=== PATIENT | female | born 2000 | race Caucasian/White ===

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

== ENCOUNTER 2019-09-23 18:07 | Emergency (ER) | payer OTHER ==
[2019-09-23] MEDS ORDERED: Diphtheria,Pertussis(Acell),Tetanus Vaccine 0.5 ML Syringe IM ONE (21:13)
--- NOTE | 2019-09-23 21:15 | EDM.PDOC ---
ED HPI GENERAL MEDICAL PROBLEM - General Chief Complaint: Lower Extremity Injury/Pain Stated Complaint: INJURY TO RIGHT FOOT Time Seen by Provider: 09/23/19 21:13 Source of Information: Reports: Patient History Limitations: Reports: No Limitations - History of Present Illness INITIAL COMMENTS - FREE TEXT/NARRATIVE: Patient is 19-year-old female presenting with no past medical history complaining of puncture wound to the left foot. Patient states that she was walking and suffered a puncture wound from a tripp needle. The needle remained intact and pierced her foot and between the big and second toe. Patient had mild associated bleeding. No associated numbness or tingling. Bleeding controlled with direct pressure. This event happened about an hour prior to arrival. Pmhx: None Pshx: None Family Hx: noncontributory Smoking history? no Etoh use? none Drug use? none Review of systems performed and otherwise negative I have reviewed the triage vital signs Const: Well nourished, well developed, appears stated age Eyes: PERRL, no conjunctival injection HENT: NCAT, Neck supple without meningismus CV: RRR, Warm, well-perfused extremities GI: soft, non-tender, non-distended, no masses MSK: Puncture wound to the webspace between the first and second toe of the left foot. No foreign body visualized no swelling. No active bleeding. No gross deformities appreciated Skin: Warm, dry. 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 Sensation and motor function of extremities grossly intact. Psych: Appropriate mood and affect Assessment and plan: Patient is 20 female with puncture wound to the left foot. Patient has no evidence of foreign body. Mechanism is not concerning for fracture. Patient updated on tetanus and given instructions for local wound care. All questions addressed and answered. Patient agrees with plan right foot Pain Score (Numeric/FACES): 2 - Related Data Allergies Allergy/AdvReac Type Severity Reaction Status Date / Time No Known Allergies Allergy Verified 09/23/19 19:27 Home Meds: Home Meds . 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 Hematologic History: Reports: None Immunologic History: Reports: None Oncologic (Cancer) History: Reports: None Dermatologic History: Reports: None - Infectious Disease History Infectious Disease History: Reports: None - Past Surgical History Head Surgeries/Procedures: Reports: None HEENT Surgical History: Reports: Adenoidectomy, Tonsillectomy Social & Family History - Family History Family Medical History: Noncontributory - Tobacco Use Smoking Status *Q: Never Smoker - Caffeine Use Caffeine Use: Reports: Soda - Recreational Drug Use Recreational Drug Use: No Review of Systems - Review of Systems Review Of Systems: See Below ED EXAM, GENERAL - Physical Exam Exam: See Below Course - Vital Signs Last Recorded V/S: Last Vital Signs Temp 37.0 C 09/23/19 19:27 Pulse 92 09/23/19 19:27 Resp 18 09/23/19 19:27 BP 135/81 09/23/19 19:27 Pulse Ox 98 09/23/19 19:27 - Orders/Labs/Meds Orders: Active Orders 24 hr Category Date Time Status Vaccines to be Administered [RC] PER UNIT ROUTINE Care 09/23/19 21:13 Active Meds: Medications Discontinued Medications Generic Name Dose Route Start Last Admin Trade Name Freq PRN Reason Stop Dose Admin Diphtheria/Tetanus/Acell Pertussis 0.5 ml 09/23/19 21:13 09/23/19 21:18 Adacel IM 09/23/19 21:14 0.5 ml .ONCE ONE Administration Departure - Departure Time of Disposition: 21:13 Disposition: Home, Self-Care 01 Clinical Impression: Puncture wound of foot, right - Discharge Information Instructions: Puncture Wound, [id number] Referrals: Kristy Vernon DO [Primary Care Provider] - Forms: ED Department Discharge Additional Instructions: The following information is given to patients seen in the emergency department who are being discharged to home. This information is to outline your options for follow-up care. We provide all patients seen in our emergency department with a follow-up referral. The need for follow-up, as well as the timing and circumstances, are variable depending upon the specifics of your emergency department visit. If you don't have a primary care physician on staff, we will provide you with a referral. We always advise you to contact your personal physician following an emergency department visit to inform them of the circumstance of the visit and for follow-up with them and/or the need for any referrals to a consulting specialist. The emergency department will also refer you to a specialist when appropriate. This referral assures that you have the opportunity for follow-up care with a specialist. All of these measure are taken in an effort to provide you with optimal care, which includes your follow-up. Under all circumstances we always encourage you to contact your private physician who remains a resource for coordinating your care. When calling for follow-up care, please make the office aware that this follow-up is from your recent emergency room visit. If for any reason you are refused follow-up, please contact the [facility] Emergency Department at and asked to speak to the emergency department charge nurse. Sepsis Event Note - Evaluation Sepsis Screening Result: No Definite Risk - Focused Exam Vital Signs: Vital Signs Temp Pulse Resp BP Pulse Ox 09/23/19 19:27 37.0 C 92 18 135/81 98 Date Exam was Performed: 09/24/19 Time Exam was Performed: 04:29 - My Orders Last 24 Hours: My Active Orders 09/23/19 21:13 Vaccines to be Administered [RC] PER UNIT ROUTINE - Assessment/Plan Last 24 Hours: My Active Orders 09/23/19 21:13 Vaccines to be Administered [RC] PER UNIT ROUTINE
== END 2019-09-23 21:38 | disposition home or self-care (01) ==
LOC: MW.ED 18:07
DX: S91.332A Puncture wound without foreign body, left foot, initial encounter (principal); Z23 Encounter for immunization; Z98.890 Other specified postprocedural states; W27.3XXA Contact with needle (sewing), initial encounter
CPT/HCPCS: 90471; 90715; 99282; 99283

== ENCOUNTER 2024-03-26 12:53 | Emergency (ER) | payer OTHER ==
[2024-03-26] MEDS ORDERED: Sodium Chloride 0.9% 2.5 ML Syringe FLUSH PRN (13:28)
[2024-03-26] MEDS ORDERED: Sodium Chloride 0.9% 10 ML Syringe FLUSH PRN (13:28)
[2024-03-26 13:54] LABS: BASOPHILS ABSOLUTE AUTO 0.03 K/uL (0.00-0.20); BASOPHILS PERCENT AUTO 0.5 % (0.0-1.0); EOSINOPHILS ABSOLUTE AUTO 0.11 K/uL (0.00-0.45); EOSINOPHILS PERCENT AUTO 1.7 % (0.0-6.0); HEMATOCRIT 38.4 % (37.0-47.0); IMMATURE GRAN ABSOLUTE AUTO 0.01 K/uL (0.00-0.05); IMMATURE GRAN PERCENT AUTO 0.2 % (0.0-0.4); LYMPHOCYTES ABSOLUTE AUTO 1.59 K/uL (1.00-4.80); LYMPHOCYTES PERCENT AUTO 24.5 % (24.0-44.0); MEAN CORPUSCULAR HEMOGLOBIN 28.8 pg (28.0-32.0); MEAN CORPUSCULAR HGB CONC 33.9 g/dL (32.0-36.0); MEAN CORPUSCULAR VOLUME 85.1 fL (83.0-99.0); MEAN PLATELET VOLUME 10.9 fL (9.4-12.3); MONOCYTES ABSOLUTE AUTO 0.49 K/uL (0.00-0.80); MONOCYTES PERCENT AUTO 7.6 % (0.0-8.0); NEUTROPHILS ABSOLUTE AUTO 4.26 K/uL (1.80-7.70); NEUTROPHILS PERCENT AUTO 65.5 % (41.0-71.0); PLATELET COUNT,PLT 243 K/uL (150-400); RED BLOOD CELL COUNT 4.51 M/uL (4.10-5.30); WHITE BLOOD CELL COUNT,WBC 6.49 K/uL (3.9-11.3)
[2024-03-26 14:38] LABS: A/G RATIO 1.1 (0.9-1.6); ALBUMIN 4.2 g/dL (3.4-5.0); BILIRUBIN TOTAL 0.9 mg/dL (0.2-1.0); CALCIUM 9.5 mg/dL (8.5-10.1); CARBON DIOXIDE,CO2 29.4 mmol/L (21.0-32.0); CREATININE 0.7 mg/dL (0.6-1.0); EST CRCL DRUG DOSING (CG) 101.63 mL/min; POTASSIUM,K 3.9 mmol/L (3.5-5.1); PROTEIN TOTAL,TP 7.9 g/dL (6.4-8.2)
== END 2024-03-26 14:50 | disposition home or self-care (01) ==
LOC: MW.ED 12:53
DX: Z34.01 Encounter for supervision of normal first pregnancy, first trimester (principal); Z3A.08 8 weeks gestation of pregnancy; Z75.8 Other problems related to medical facilities and other health care
CPT/HCPCS: 36415; 76813; 76816-26; 80053; 84702; 85025; 99283; 99284

== ENCOUNTER 2024-04-13 07:46 | Emergency (ER) | payer OTHER ==
[2024-04-13 08:24] LABS: BASOPHILS ABSOLUTE AUTO 0.02 K/uL (0.00-0.20); BASOPHILS PERCENT AUTO 0.3 % (0.0-1.0); EOSINOPHILS ABSOLUTE AUTO 0.15 K/uL (0.00-0.45); EOSINOPHILS PERCENT AUTO 2.5 % (0.0-6.0); HEMOGLOBIN 11.9 g/dL (12.0-16.0); IMMATURE GRAN ABSOLUTE AUTO 0.01 K/uL (0.00-0.05); IMMATURE GRAN PERCENT AUTO 0.2 % (0.0-0.4); LYMPHOCYTES ABSOLUTE AUTO 1.74 K/uL (1.00-4.80); LYMPHOCYTES PERCENT AUTO 28.7 % (24.0-44.0); MEAN CORPUSCULAR HEMOGLOBIN 28.5 pg (28.0-32.0); MEAN CORPUSCULAR VOLUME 83.9 fL (83.0-99.0); MEAN PLATELET VOLUME 11.1 fL (9.4-12.3); MONOCYTES PERCENT AUTO 9.9 % (0.0-8.0); NEUTROPHILS ABSOLUTE AUTO 3.54 K/uL (1.80-7.70); NEUTROPHILS PERCENT AUTO 58.4 % (41.0-71.0); PLATELET COUNT,PLT 224 K/uL (150-400); RED BLOOD CELL COUNT 4.17 M/uL (4.10-5.30); WHITE BLOOD CELL COUNT,WBC 6.06 K/uL (3.9-11.3)
[2024-04-13] MEDS: Acetaminophen 325 MG Tab PO ONE (08:39)
[2024-04-13] MEDS: Sodium Chloride 0.9% 10 ML Syringe FLUSH PRN (08:39)
[2024-04-13] MEDS: Sodium Chloride 0.9% 2.5 ML Syringe FLUSH PRN (08:39)
[2024-04-13 09:09] LABS: A/G RATIO 1.2 (0.9-1.6); BILIRUBIN TOTAL 0.7 mg/dL (0.2-1.0); CALCIUM 8.9 mg/dL (8.5-10.1); CREATININE 0.8 mg/dL (0.6-1.0); EST CRCL DRUG DOSING (CG) 88.52 mL/min; POTASSIUM,K 3.4 mmol/L (3.5-5.1); PROTEIN TOTAL,TP 7.4 g/dL (6.4-8.2)
[2024-04-13 09:42] LABS: APPEARANCE,URINE CLEAR; BILIRUBIN,URINE NEGATIVE (NEGATIVE); COLOR,URINE YELLOW; GLUCOSE,URINE NEGATIVE (NEGATIVE); KETONES,URINE 15 mg/dL (NEGATIVE); LEUKOCYTE ESTERASE,URINE NEGATIVE (NEGATIVE); NITRITE,URINE NEGATIVE (NEGATIVE); OCCULT BLOOD,URINE NEGATIVE (NEGATIVE); PROTEIN,URINE NEGATIVE (NEGATIVE); UROBILINOGEN,URINE 0.2 EU/dL (<2.0)
== END 2024-04-13 09:59 | disposition home or self-care (01) ==
LOC: MW.ED 07:46
DX: O99.891 Other specified diseases and conditions complicating pregnancy (principal); R10.9 Unspecified abdominal pain; M79.652 Pain in left thigh; M79.651 Pain in right thigh; Z3A.10 10 weeks gestation of pregnancy; Z75.8 Other problems related to medical facilities and other health care
CPT/HCPCS: 36415; 76817; 80053; 81003; 81025; 83690; 84702; 85025; 86900; 86901; 99284; A9270; J3490

== ENCOUNTER 2024-10-26 09:52 | Inpatient (IN) | payer MEDICAID ==
[2024-10-26] MEDS ORDERED: Lidocaine 1% 50 ML MDV INJECT PRN (10:27)
[2024-10-26] MEDS ORDERED: Ondansetron 4 MG/2 ML SDV IVPUSH PRN (10:27)
[2024-10-26] MEDS ORDERED: Carboprost Tromethamine 250 MCG/1 mL Vial IM PRN (10:27)
[2024-10-26] MEDS ORDERED: Methylergonovine 0.2 MG/1 ML Amp IM PRN (10:27)
[2024-10-26] MEDS ORDERED: Misoprostol 200 MCG Tab PO PRN (10:27)
[2024-10-26] MEDS ORDERED: Sodium Chloride 0.9% 10 ML Syringe FLUSH PRN (10:27)
[2024-10-26] MEDS ORDERED: Sodium Chloride 0.9% 2.5 ML Syringe FLUSH PRN (10:27)
[2024-10-26] MEDS ORDERED: Sodium Chloride 0.9% 20 ML SDV IV PRN (10:27)
[2024-10-26] MEDS ORDERED: Water For Irrigation,Sterile 1,000 ML Container IRR PRN (10:27)
[2024-10-26] MEDS ORDERED: Butorphanol 2 MG/ML SDV IVPUSH PRN (10:27)
[2024-10-26] MEDS: Ampicillin 2 GM in Sodium Chloride 0.9% 100 ML IV ONE (11:09)
[2024-10-26] MEDS: Lactated Ringers 1,000 ML IV SCH (11:09)
[2024-10-26] MEDS ORDERED: ePHEDrine 50 MG/ML SDV IVPUSH PRN (11:17)
[2024-10-26] MEDS ORDERED: Phenylephrine HCl In 0.9% NaCl 1 MG/10 ML Syringe IVPUSH PRN (11:17)
[2024-10-26 11:18] LABS: HEMOGLOBIN 11.9 g/dL (12.0-16.0); MEAN CORPUSCULAR HEMOGLOBIN 29.2 pg (28.0-32.0); MEAN PLATELET VOLUME 12.1 fL (9.4-12.3); PLATELET COUNT,PLT 167 K/uL (150-400); RED BLOOD CELL COUNT 4.07 M/uL (4.10-5.30); WHITE BLOOD CELL COUNT,WBC 7.29 K/uL (3.9-11.3)
[2024-10-26] MEDS ORDERED: dexmedeTOMIDine HCl 200 MCG/2 ML SDV EPIDUR SCH (11:30)
[2024-10-26] MEDS: Ampicillin 1 GM in Sodium Chloride 0.9% 50 ML IV SCH (14:57)
[2024-10-26] MEDS ORDERED: Terbutaline 1 MG/ML SDV SUBCUT PRN (16:04)
[2024-10-26] MEDS: Oxytocin/0.9 % Sodium Chloride 30 UNIT/500 ML BAG IV SCH ×2 (16:27→16:30)
[2024-10-26] MEDS: Ropivacaine HCl/PF 400 MG in Premix Bag 1 BAG EPIDUR SCH (18:47)
[2024-10-26] MEDS ORDERED: Aluminum Hydroxide/Magnesium Hydroxide/Simethicone Susp 30 ML Cup PO PRN (23:52)
[2024-10-26] MEDS ORDERED: Famotidine 20 MG Tab PO PRN (23:52)
[2024-10-26] MEDS ORDERED: Simethicone 80 MG Tab.Chew PO PRN (23:52)
[2024-10-26] MEDS ORDERED: Docusate Sodium 100 MG Cap PO PRN (23:52)
[2024-10-27 00:27] LABS: PH,UMBILICAL ARTERIAL 7.34 (7.18-7.38); PH,UMBILICAL VENOUS 7.32 (7.25-7.45)
[2024-10-27] MEDS: Witch Hazel Medicated Pads 40/Jar TOP PRN (01:34)
[2024-10-27] MEDS: Benzocaine/Menthol 20%-0.5% Spray 78 GM Cannister TOP PRN (01:35)
[2024-10-27] MEDS: Lanolin 100% Cream 7 GM Tube TOP PRN (01:35)
[2024-10-27 06:22] LABS: BASOPHILS ABSOLUTE AUTO 0.05 K/uL (0.00-0.20); BASOPHILS PERCENT AUTO 0.4 % (0.0-1.0); EOSINOPHILS ABSOLUTE AUTO 0.14 K/uL (0.00-0.45); EOSINOPHILS PERCENT AUTO 1.1 % (0.0-6.0); HEMATOCRIT 34.6 % (37.0-47.0); HEMOGLOBIN 11.4 g/dL (12.0-16.0); IMMATURE GRAN ABSOLUTE AUTO 0.03 K/uL (0.00-0.05); IMMATURE GRAN PERCENT AUTO 0.2 % (0.0-0.4); LYMPHOCYTES ABSOLUTE AUTO 1.94 K/uL (1.00-4.80); LYMPHOCYTES PERCENT AUTO 15.6 % (24.0-44.0); MEAN CORPUSCULAR HEMOGLOBIN 28.5 pg (28.0-32.0); MEAN CORPUSCULAR HGB CONC 32.9 g/dL (32.0-36.0); MEAN CORPUSCULAR VOLUME 86.5 fL (83.0-99.0); MEAN PLATELET VOLUME 12.2 fL (9.4-12.3); MONOCYTES PERCENT AUTO 7.3 % (0.0-8.0); NEUTROPHILS ABSOLUTE AUTO 9.35 K/uL (1.80-7.70); NEUTROPHILS PERCENT AUTO 75.4 % (41.0-71.0); PLATELET COUNT,PLT 165 K/uL (150-400); WHITE BLOOD CELL COUNT,WBC 12.41 K/uL (3.9-11.3)
[2024-10-27] MEDS: Ibuprofen 800 MG Tab PO PRN (06:25)
[2024-10-27] MEDS: Acetaminophen 500 MG Tab PO PRN (06:26)
== END 2024-10-28 15:10 | disposition home or self-care (01) | DRG 806 ==
LOC: MW.OBCHECK 09:52 → MW.OB 09:57 → MW.OBCHECK 11:00 → OBSVTOIN 23:19 → MW.OB 10-27 02:45
PROVIDERS: ADMIT Obstetrics & Gynecology; ATTEND Obstetrics & Gynecology Obstetrics
PROC: 10E0XZZ Delivery of Products of Conception, External Approach (ICD-10-PCS; principal; 2024-10-26)
PROC: 3E0R3BZ Introduction of Anesthetic Agent into Spinal Canal, Percutaneous Approach (ICD-10-PCS; 2024-10-26)
DX: O42.013 Preterm premature rupture of membranes, onset of labor within 24 hours of rupture, third trimester (principal); O98.52 Other viral diseases complicating childbirth; Z37.0 Single live birth; O99.02 Anemia complicating childbirth; Z3A.37 37 weeks gestation of pregnancy; B00.9 Herpesviral infection, unspecified; O99.824 Streptococcus B carrier state complicating childbirth; Z90.49 Acquired absence of other specified parts of digestive tract; Z79.899 Other long term (current) drug therapy
CPT/HCPCS: 01967; 36415; 51702; 59025; 59409; 76815; 76815-26; 82803; 84112; 85025; 85027; 86592; 86850; 86900; 86901; A9270-GY; J0290; J2590; J2795; J7120

== ENCOUNTER 2024-12-14 14:38 | Emergency (ER) | payer MEDICAID ==
[2024-12-14] MEDS: Dexamethasone 4 MG Tab PO ONE (15:23)
== END 2024-12-14 16:07 | disposition home or self-care (01) ==
LOC: MW.ED 14:38
DX: J06.9 Acute upper respiratory infection, unspecified (principal); B97.89 Other viral agents as the cause of diseases classified elsewhere; R05.2 Subacute cough; Z79.899 Other long term (current) drug therapy
CPT/HCPCS: 99283; J8540